=== PATIENT | male | born 1960 | race Caucasian/White ===

== ENCOUNTER 2018-02-21 15:33 | Emergency (ER) | payer BC ==
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
--- NOTE | 2018-02-21 16:57 | RAD ---
Indication: Left humerus pain. 2 views of left humerus demonstrates no fracture. No other bone or joint abnormality is identified. IMPRESSION: No fracture of the left humerus is noted.
--- NOTE | 2018-02-21 16:58 | RAD ---
Indication: Left rib pain. 3 views of left ribs are reviewed. There is no fracture. No pneumothorax is noted. The heart is of normal size and configuration. Additional dual energy PA views of the chest demonstrate no mediastinal shift. Heart is of normal size and configuration. Lung nieto are clear. IMPRESSION: No fracture of the left ribs is noted. No pneumothorax is noted.
--- NOTE | 2018-02-21 16:59 | RAD ---
Indication: Left shoulder pain. 3 views of left shoulder demonstrates AC joint arthritis. There is no fracture or dislocation. No other bone or joint abnormality is noted. IMPRESSION: AC joint arthritis without fracture.
[2018-02-21 17:57] VITALS: BP 0/0
== END 2018-02-21 17:55 | disposition home or self-care (01) ==
LOC: ED 15:33
DX: M25.512 Pain in left shoulder (principal); R07.81 Pleurodynia; V19.9XXA Pedal cyclist (driver) (passenger) injured in unspecified traffic accident, initial encounter; Y93.55 Activity, bike riding; Y92.9 Unspecified place or not applicable; E78.00 Pure hypercholesterolemia, unspecified; I10 Essential (primary) hypertension
CPT/HCPCS: 99281